=== PATIENT | male | born 1960 ===

== ENCOUNTER → 2025-01-22 | Outpatient (REF) | payer SELFPAY ==
[2025-01-22 20:15] LABS: International Normalized Ratio 2.1; Prothrombin Time (Protime)PT. 23.6 SECONDS (11.7-14.9)
== END | disposition home or self-care (01) ==
LOC: OLS.AHA 19:37
DX: I48.20 Chronic atrial fibrillation, unspecified (principal)
CPT/HCPCS: 85610